=== PATIENT | male | born 1980 | race Caucasian/White ===

== ENCOUNTER 2022-03-21 17:06 | Emergency (ER) | payer BC, SELFPAY ==
[2022-03-21 17:20] VITALS: BP 131/88; PULSE 65; RESP 19; TEMP 37; O2SAT 98; BMI 27.1
[2022-03-21 17:53] VITALS: BP 131/88; PULSE 65; RESP 19; TEMP 37; O2SAT 98
--- NOTE | 2022-03-21 18:00 | HMH.EDUTC ---
[facility] [place] Disposition Clinical Impression: Poison any dermatitis Disposition: Home, Self-Care Condition on Discharge: Good Instructions: Summertime Rashes: Poison Any, Allen, and [place], Poisonous Plants: Any, Allen, and [place]: Beware the Oils, Poison Any, Poison Allen, Poison [place], DI for Poison Any Allergy Additional Instructions: Start Oral steriods tomorrow Oatmeal baths may help with itching and drying of rash Calamine lotion may help to dry the rash Over the counter Benadryl may help with itching Over the counter patches from [place] or biofreeze may help with muscle spasms and pain Return if needed Straight to ER If any life threatening symptoms Prescriptions: predniSONE [Prednisone 10mg Tab Dose-Pack] 10 mg PO UD DOSE PK 6 Days #21 tab Transmission Status: Pending to [id number] Time of Disposition: 18:04 Medical Decision Making - Giovanni Inquiry Pt receiving controlled substance: No Giovanni was queried for this patient: No Vital Signs: 03/21/22 17:20 03/21/22 17:53 Temperature 98.6 F 98.6 F Temperature Source Oral Pulse Rate 65 Pulse Rate [Right Brachial] 65 Respiratory Rate 19 19 Blood Pressure 131/88 Blood Pressure [Right Arm] 131/88 Blood Pressure Mean [Right Arm] 102 Blood Pressure Source [Right Arm] Automatic Cuff Blood Pressure Position [Right Arm] Sitting 02 Sat by Pulse Oximetry 98 Oxygen Delivery Method Room Air Orders (Tests/Meds): ED MEDICATIONS Discontinued Medications Generic Name Dose Route Start Last Admin Trade Name Freq PRN Reason Stop Dose Admin Methylprednisolone Sodium Succinate 125 mg 03/21/22 17:42 03/21/22 17:45 Methylprednisolone Sod Succ 125mg Vial IM 03/21/22 17:43 125 mg ONCE ONE Administration [facility] [place] HPI - General Stated complaint: possible poison oak on body Time Seen by Provider: 03/21/22 17:35 Mode of Arrival: Ambulatory Source of Information: Patient Limitations: No Limitations Description of Symptoms (Recalled from Triage Doc. by RN): PATIENT C/O RASH TO CHEST, FACE AND ARMS X 3 DAYS HEENT Symptoms (Recalled from RN notes): No Resp Symptoms (Recalled from RN notes): No Skin Symptoms (Recalled from RN notes): Yes MS Symptoms (Recalled from RN notes): No Functional Status (Recalled from RN notes): WNL - History of Present Illness Provider Complaint: Patient complains of itchy rash to the left side of his face, neck and chest area States that he thinks he may have poison any or oak States that rash is itchy and spreading so he came in - Related Data Previous Rx's Medication Instructions Recorded predniSONE [Prednisone 10mg Tab 10 mg PO UD DOSE PK 6 Days #21 tab 03/21/22 Dose-Pack] Allergies Allergy/AdvReac Type Severity Reaction Status Date / Time No Known Allergies Allergy Verified 03/21/22 17:37 - Worker's Comp Is this a Worker's Comp case?: No [facility] History - Hepatitis A Screen Attestation statement:: This patient has been screened for Hepatitis A risk factors. I have reviewed the patient's past medical history: Yes Laterality Cases: Bilateral: Myringotomy (Ear Tubes), Tonsillectomy - Social History Alcohol Intake: never Occupational Status: other ROS Obtained: Yes All systems reviewed & no additional complaints, Yes Systems reviewed as appropriate & no additional complaints - Constitutional Constitutional: Reports system reviewed and no additional complaints, except as docu, Denies body ache, Denies chills, Denies fever(s) - ENT Ears, Nose, Mouth, and Throat: Reports system reviewed and no additional complaints, except as docu - Cardiovascular Cardiovascular: Reports system reviewed and no additional complaints, except as docu - Respiratory Respiratory: Reports system reviewed and no additional complaints, except as docu - Gastrointestinal Gastrointestingal: Reports: system reviewed and no additional complaints, except as docu - Integumentary/Breasts Skin/Breast: Reports sys
== END 2022-03-21 18:13 | disposition home or self-care (01) ==
PROVIDERS: Emergency Provider Nurse Practitioner
DX: L23.7 Allergic contact dermatitis due to plants, except food (principal)
CPT/HCPCS: 96372; 99212; G0463